=== PATIENT | male | born 1960 | race Caucasian/White ===

== ENCOUNTER 2017-11-06 20:15 | Emergency (ER) | payer BC ==
[2017-11-06] MEDS ORDERED: RX INFO: IV CONTRAST WAS GIVEN 1 EACH MISC MISCELLANE PRN (21:17)
--- NOTE | 2017-11-06 21:20 | ED ---
General Adult HPI - General Chief complaint: Abdominal Pain Stated complaint: Abd pain Time Seen by Provider: 11/06/17 21:08 Source: patient, RN notes reviewed Mode of arrival: ambulatory Limitations: no limitations - History of Present Illness Initial comments: 57-year-old male presents with chief complaint of abdominal pain patient's pain began in the right lower quadrant over the past 12 hours. Pain was initially sharp, gradually worsened throughout the day. Pain is worse with standing. Patient also reports pain in his right testicle. Patient is passing gas, has had normal bowel movement today. No vomiting. No upper abdominal pain. No chest pain or shortness of breath. No history kidney stones. Patient denies flank pain. Denies dysuria. Denies hematuria. - Related Data Home Medications Medication Instructions Recorded Confirmed Aspirin [Adult Low Dose Aspirin EC] 81 mg PO DAILY 11/06/17 11/06/17 Loratadine-Pseudoeph 10-240 mg 1 tab PO HS 11/06/17 11/06/17 [Claritin-D 24 Hr] Losartan Potassium [Cozaar] 50 mg PO DAILY 11/06/17 11/06/17 Magnesium 200 mg PO DAILY 11/06/17 11/06/17 Multivitamin with Iron 1 tab PO DAILY 11/06/17 11/06/17 [Multivitamins with Iron] Pravastatin Sodium [Pravachol] 40 mg PO HS 11/06/17 11/06/17 Previous Rx's Medication Instructions Recorded Ibuprofen [Motrin] 600 mg PO Q8HR PRN #24 tab 11/07/17 Sulfamethox-Tmp 800-160Mg [Bactrim 1 tab PO Q12HR #28 tab 11/07/17 DS 800-160 mg] Allergies Allergy/AdvReac Type Severity Reaction Status Date / Time No Known Allergies Allergy Verified 11/06/17 22:24 Review of Systems ROS Statement: Those systems with pertinent positive or pertinent negative responses have been documented in the HPI. ROS Other: All systems not noted in ROS Statement are negative. Past Medical History Past Medical History: Hyperlipidemia, Hypertension History of Any Multi-Drug Resistant Organisms: None Reported Past Surgical History: Tonsillectomy Additional Past Surgical History / Comment(s): eye lens implant, varicose vein Past Psychological History: No Psychological Hx Reported Smoking Status: Never smoker Past Alcohol Use History: None Reported Past Drug Use History: None Reported General Exam Limitations: no limitations General appearance: alert, in no apparent distress Head exam: Present: atraumatic, normocephalic Eye exam: Present: normal appearance, PERRL ENT exam: Present: normal exam Neck exam: Present: normal inspection. Absent: tenderness, meningismus Respiratory exam: Present: normal lung sounds bilaterally. Absent: respiratory distress Cardiovascular Exam: Present: regular rate. Absent: normal rhythm GI/Abdominal exam: Present: soft, tenderness (Mild tenderness right lower quadrant, ), hernia (Umbilical hernia, bulge in the right inguinal region.). Absent: distended exam: Present: testicular tenderness (Right testicular tenderness.) Extremities exam: Present: normal inspection, normal capillary refill. Absent: pedal edema Neurological exam: Present: alert, oriented X3 Psychiatric exam: Present: normal affect, normal mood Skin exam: Present: warm, dry, intact. Absent: cyanosis, diaphoretic Course Vital Signs 11/06/17 11/06/17 20:22 22:54 Temperature 98.7 F Pulse Rate 72 73 Respiratory 16 18 Rate Blood Pressure 168/90 149/75 O2 Sat by Pulse 98 95 Oximetry Medical Decision Making - Medical Decision Making 57-year-old male presenting with right lower quadrant abdominal pain and right testicle pain. Pain has been present throughout the day today. Laboratory studies are obtained, white blood cell count normal 7.0, electrolytes within normal limits, lactic acid negative, urinalysis is clear. CT is obtained, shows gallstones, and liver hemangioma. Neither these findings are likely responsible for the patient's pain. Ultrasound of the scrotum is obtained, normal arterial blood flow, small bilateral hydroceles and right epididymitis with hyperemic change. This may explain the patient's testicular pain. Urinalysis shows no sign of infection, patient will be placed on antibiotics and Motrin. Regarding right lower quadrant pain, patient will follow-up with primary care physician. Uncertain cause for this pain at this time. - Lab Data Result diagrams: 11/06/17 21:24 11/06/17 21:24 Lab Results 11/06/17 11/06/17 11/06/17 Range/Units 21:24 21:24 21:24 WBC 7.0 (3.8-10.6) k/uL RBC 4.80 (4.30-5.90) m/uL Hgb 14.0 (13.0-17.5) gm/dL Hct 42.3 (39.0-53.0) % MCV 88.1 (80.0-100.0) fL MCH 29.1 (25.0-35.0) pg MCHC 33.0 (31.0-37.0) g/dL RDW 12.7 (11.5-15.5) % Plt Count 336 (150-450) k/uL Neutrophils % 62 % Lymphocytes % 26 % Monocytes % 7 % Eosinophils % 2 % Basophils % 1 % Neutrophils # 4.3 (1.3-7.7) k/uL Lymphocytes # 1.9 (1.0-4.8) k/uL Monocytes # 0.5 (0-1.0) k/uL Eosinophils # 0.2 (0-0.7) k/uL Basophils # 0.1 (0-0.2) k/uL Sodium 142 (137-145) mmol/L Potassium 4.4 (3.5-5.1) mmol/L Chloride 105 (98-107) mmol/L Carbon Dioxide 26 (22-30) mmol/L Anion Gap 11 mmol/L BUN 23 H (9-20) mg/dL Creatinine 0.90 (0.66-1.25) mg/dL Est GFR (MDRD) Af Amer >60 (>60 ml/min/1.73 sqM) Est GFR (MDRD) Non-Af >60 (>60 ml/min/1.73 sqM) Glucose 109 H (74-99) mg/dL Plasma Lactic Acid [place] 0.9 (0.7-2.0) mmol/L Calcium 9.5 (8.4-10.2) mg/dL Total Bilirubin 0.3 (0.2-1.3) mg/dL AST 23 (17-59) U/L ALT 47 (21-72) U/L Alkaline Phosphatase 102 (38-126) U/L Total Protein 7.5 (6.3-8.2) g/dL Albumin 4.5 (3.5-5.0) g/dL Amylase 59 (30-110) U/L Lipase 61 (23-300) U/L Urine Color Urine Appearance (Clear) Urine pH (5.0-8.0) Ur Specific [place] (1.001-1.035) Urine Protein (Negative) Urine Glucose (UA) (Negative) Urine Ketones (Negative) Urine Blood (Negative) Urine Nitrite (Negative) Urine Bilirubin (Negative) Urine Urobilinogen (<2.0) mg/dL Ur Leukocyte Esterase (Negative) 11/06/17 Range/Units 21:33 WBC (3.8-10.6) k/uL RBC (4.30-5.90) m/uL Hgb (13.0-17.5) gm/dL Hct (39.0-53.0) % MCV (80.0-100.0) fL MCH (25.0-35.0) pg MCHC (31.0-37.0) g/dL RDW (11.5-15.5) % Plt Count (150-450) k/uL Neutrophils % % Lymphocytes % % Monocytes % % Eosinophils % % Basophils % % Neutrophils # (1.3-7.7) k/uL Lymphocytes # (1.0-4.8) k/uL Monocytes # (0-1.0) k/uL Eosinophils # (0-0.7) k/uL Basophils # (0-0.2) k/uL Sodium (137-145) mmol/L Potassium (3.5-5.1) mmol/L Chloride (98-107) mmol/L Carbon Dioxide (22-30) mmol/L Anion Gap mmol/L BUN (9-20) mg/dL Creatinine (0.66-1.25) mg/dL Est GFR (MDRD) Af Amer (>60 ml/min/1.73 sqM) Est GFR (MDRD) Non-Af (>60 ml/min/1.73 sqM) Glucose (74-99) mg/dL Plasma Lactic Acid [place] (0.7-2.0) mmol/L Calcium (8.4-10.2) mg/dL Total Bilirubin (0.2-1.3) mg/dL AST (17-59) U/L ALT (21-72) U/L Alkaline Phosphatase (38-126) U/L Total Protein (6.3-8.2) g/dL Albumin (3.5-5.0) g/dL Amylase (30-110) U/L Lipase (23-300) U/L Urine Color Yellow Urine Appearance Clear (Clear) Urine pH 5.5 (5.0-8.0) Ur Specific [place] 1.019 (1.001-1.035) Urine Protein Negative (Negative) Urine Glucose (UA) Negative (Negative) Urine Ketones Negative (Negative) Urine Blood Negative (Negative) Urine Nitrite Negative (Negative) Urine Bilirubin Negative (Negative) Urine Urobilinogen <2.0 (<2.0) mg/dL Ur Leukocyte Esterase Negative (Negative) Disposition Clinical Impression: Abdominal pain, Epididymitis Disposition: HOME SELF-CARE Condition: Good Instructions: Abdominal Pain (ED), Epididymitis (ED) Prescriptions: Ibuprofen [Motrin] 600 mg PO Q8HR PRN #24 tab PRN Reason: Pain Sulfamethox-Tmp 800-160Mg [Bactrim DS 800-160 mg] 1 tab PO Q12HR #28 tab Referrals: Daniel Gonzalez MD [Primary Care Provider] - 1-2 days Time of Disposition: 00:23
[2017-11-06 21:33] LABS: Basophils # (A) 0.1 k/uL (0-0.2); Basophils % (A) 1 %; Eosinophils # (A) 0.2 k/uL (0-0.7); Eosinophils % (A) 2 %; HCT 42.3 % (39.0-53.0); Lymphocytes # (A) 1.9 k/uL (1.0-4.8); Lymphocytes % (A) 26 %; MCH 29.1 pg (25.0-35.0); MCV 88.1 fL (80.0-100.0); Mean Platelet Volume 6.4; Monocytes # (A) 0.5 k/uL (0-1.0); Monocytes % (A) 7 %; Neutrophils # (A) 4.3 k/uL (1.3-7.7); Neutrophils % (A) 62 %; Platelet Count 336 k/uL (150-450); RDW 12.7 % (11.5-15.5)
[2017-11-06 21:42] LABS: Appearance,Urine Clear (Clear); Bilirubin,Urine Negative (Negative); Blood,Urine Negative (Negative); Color,Urine Yellow; Glucose,Urine (UA) Negative (Negative); Ketones,Urine Negative (Negative); Leukocyte Esterase,Urine Negative (Negative); Nitrite,Urine Negative (Negative); PH, Urine 5.5 (5.0-8.0); Protein,Urine Negative (Negative); Specific Gravity,Urine 1.019 (1.001-1.035); Urobilinogen,Urine <2.0 mg/dL (<2.0)
[2017-11-06 21:43] LABS: ALT 47 U/L (21-72); AST 23 U/L (17-59); Albumin 4.5 g/dL (3.5-5.0); Alkaline Phosphatase 102 U/L (38-126); Amylase 59 U/L (30-110); Anion Gap 11 mmol/L; Blood Urea Nitrogen 23 mg/dL (9-20); Calcium 9.5 mg/dL (8.4-10.2); Carbon Dioxide 26 mmol/L (22-30); Chloride 105 mmol/L (98-107); Glucose 109 mg/dL (74-99); Lipase 61 U/L (23-300); Potassium 4.4 mmol/L (3.5-5.1); Sodium 142 mmol/L (137-145); Total Bilirubin 0.3 mg/dL (0.2-1.3); Total Protein 7.5 g/dL (6.3-8.2)
--- NOTE | 2017-11-06 22:26 | CT ---
EXAMINATION TYPE: CT abdomen pelvis w con DATE OF EXAM: 11/06/2017 COMPARISON: NONE HISTORY: Lower abdominal pain. CT DLP: 3079.8 mGycm Automated exposure control for dose reduction was used. TECHNIQUE: Helical acquisition of images was performed from the lung bases through the pelvis. CONTRAST: Performed without Oral Contrast and with IV Contrast, patient injected with 100 mL of Omnipaque 300. FINDINGS: There are small calcified granulomata at the lung bases. There is no pleural effusion. There is no pe ricardial effusion. There is heterogeneous 4 cm density in the posterior superior right lobe of the liver that is probabl y a hemangioma. Bile ducts are not dilated. There are multiple calcified small gallstones. Spleen and pancreas appear normal. There is no retroperitoneal adenopathy. There is no adrenal mass. Kidneys show satisfactory contrast opacification. There is a 1 cm cortical cyst on the lower pole left kidney. There is no hydronephrosi s. The appendix appears normal. Bladder distends smoothly. I see no pelvic mass. I see no intestinal wal l thickening. There are no dilated loops. There is no ascites. There is umbilical hernia contains ome ntal fat. I see no bony destructive process. IMPRESSION: NORMAL APPENDIX. MULTIPLE CALCIFIED GALLSTONES. SMALL LEFT RENAL CYST. OLD GRANULOMATOUS DISEASE. LOW-DENSITY LIVER LESION IS PROBABLY HEMANGIOMA AND COULD BE FURTHER EVALUATED BY ULTRASOUND.
--- NOTE | 2017-11-07 00:04 | US ---
EXAMINATION TYPE: US scrotum with doppler. Grayscale and color Doppler Duplex imaging performed of t he scrotum. DATE OF EXAM: 11/06/2017 COMPARISON: NONE CLINICAL HISTORY: Pain. RLQ and right testicular pain x 1 day EXAM MEASUREMENTS: TESTICLES: Right Testicle: 3.9 x 2.6 x 3.3 cm Left Testicle: 4.4 x 2.4 x 2.9 cm EPIDIDYMIS HEAD: Right Epididymis: 1.1 x 1.0 x 1.7 cm Left Epididymis: 1.0 x 1.0 x 1.9 cm Doppler performed to assess for testicular vascularity; good bilateral color flow and waveforms are s een. There is no evidence of testicular torsion. Right epididymis: prominent body and enlarged heterogeneous hypervascular tail Presence of hydroceles: right 3.0cm, left 3.2cm Presence of varicoceles: slightly prominent vessel posterior to right testicle that increased with v alsalva IMPRESSION: No evidence of testicular torsion or mass. Small bilateral hydroceles. There is some rela tive hyperemia of the right epididymis that is suggestive of epididymitis.
[2017-11-07 00:33] VITALS: BP 141/78; PULSE 80; RESP 20; TEMP 98.2
== END 2017-11-07 00:33 | disposition home or self-care (01) ==
LOC: EC 20:15
DX: N45.1 Epididymitis (principal); R10.31 Right lower quadrant pain; E78.5 Hyperlipidemia, unspecified; I10 Essential (primary) hypertension; Z79.82 Long term (current) use of aspirin; Z79.899 Other long term (current) drug therapy
CPT/HCPCS: 36415; 80053; 82150; 83605; 83690; 85025; 81003; 93975; 76870; 74177; 99284; Q9967